=== PATIENT | male | born 1970 | race Caucasian/White ===

== ENCOUNTER → 2021-02-14 14:18 | Outpatient (CLI) | payer OTHER, SELFPAY ==
--- NOTE | 2021-02-14 14:23 | DI.MRI.S_ITS ---
PROCEDURE: MR ANKLE RT WO CON INDICATIONS: Unspecified injury of right foot, subsequent encou TECHNIQUE: Noncontrast sagittal T1 spin echo and T2 fast spin echo with fat saturation, axial proton density fast spin echo and T2 fast spin echo with fat saturation, coronal T1 spin echo and T2 fast spin echo with fat saturation through the ankle/hindfoot. COMPARISON: None. FINDINGS: Image quality: Excellent. Bones and joints: There is marrow edema involving dorsal and medial portion of distal talus adjacent to talonavicular joint without discrete fracture line. No other area of marrow signal abnormality is seen. No hindfoot coalitions. No osteochondral injuries of the talar dome. No significant joint effusions. Medial structures: The posterior tibialis, flexor digitorum longus, and flexor hallucis longus tendons are intact. Fluid distending tendon flexor digitorum longus and flexor hallucis longus tendons are seen suggestive of low-grade tenosynovitis. The posterior tibial neurovascular bundle appears normal within the tarsal tunnel, without extrinsic mass effect. The deep layer (anterior and posterior tibiotalar ligaments) and superficial layer (tibionavicular, tibiospring, and tibiocalcaneal ligaments) of the deltoid ligament appear normal. The spring ligament components (superomedial calcaneonavicular, medioplantar oblique calcaneonavicular, and inferoplantar longitudinal ligaments) are intact. Lateral structures: The anterior talofibular, calcaneofibular, and posterior talofibular ligaments appear intact. More superiorly, the anterior and posterior tibiofibular ligaments appear intact, as is the intermalleolar ligament. The tibiofibular syndesmosis is normal in width at 2 mm or less. The peroneus longus and brevis tendons demonstrate normal location and morphology. Adjacent bony peroneal tubercle and retrotrochlear prominence are normal in size. The sinus tarsi demonstrates normal fatty signal, without edema, fibrosis, or cyst formation. Visualized sinus tarsi components (cervical ligament, interosseous talocalcaneal ligament, roots of the inferior extensor retinaculum) appear normal. The calcaneonavicular and calcaneocuboid components of the bifurcate ligament appear intact. The dorsal calcaneocuboid ligament appears intact. Anterior structures: The tibialis anterior, extensor hallucis longus, and extensor digitorum longus tendons appear intact. The dorsal talonavicular ligament appears intact. Posterior and plantar structures: Achilles tendon is intact. Medial and lateral bands of the plantar fascia are of normal thickness. No abductor digiti quinti muscle atrophy to suggest Moreno neuropathy. IMPRESSION: 1. Suggestion of bony contusion versus incomplete subcortical fracture involving anterior medial aspect of distal talus adjacent to talar navicular joint. No cortical disruption is seen. No other area of marrow signal abnormality. 2. Low-grade tenosynovitis involving flexor tendons as above. No evidence of tendon tear. Achilles tendon is intact. 3. Medial and lateral ankle ligaments are grossly intact. Dictated by: Silvino Flores M.D. on 02/15/2021 at 9:43 Approved by: Silvino Flores M.D. on 02/15/2021 at 9:46
== END ==
PROVIDERS: Referring Provider Podiatrist; Visit Provider Podiatrist
DX: S99.921D Unspecified injury of right foot, subsequent encounter (principal); M25.571 Pain in right ankle and joints of right foot; M65.871 Other synovitis and tenosynovitis, right ankle and foot; R26.2 Difficulty in walking, not elsewhere classified; X58.XXXA Exposure to other specified factors, initial encounter
CPT/HCPCS: 73721

== ENCOUNTER → 2022-03-29 11:35 | Outpatient (CLI) | payer OTHER, SELFPAY ==
[2022-03-29 12:54] LABS: COVID19 -Nasal RAPID Negative (Negative)
== END ==
PROVIDERS: PCP Student in an Organized Health Care Education/Training Program; Visit Provider Family Medicine Sleep Medicine
DX: Z20.822 Contact with and (suspected) exposure to COVID-19 (principal)
CPT/HCPCS: 87635; C9803

== ENCOUNTER 2022-03-30 09:02 | Day surgery (SDC) | payer OTHER, SELFPAY ==
--- NOTE | 2022-03-30 | PATH_ITS ---
[facility] Accession Number: [id number] . 01 Material submitted: . colon - TRANSVERSE POLYP . 02 Diagnosis: Transverse Colon, Polyp, Biopsy: Tubular adenoma. MRV 04/04/2022 1251 Local . 02 Electronically signed: . Donna Chapin MD, Pathologist NPI- [id number] . 01 Gross description: . TRANSVERSE POLYP: Received in formalin is 1 fragment(s) of herrera, soft tissue measuring 1.2 x 0.3 x 0.1 cm submitted entirely in 1 cassette(s) /QBJ 04/01/2022 0424 Local . 02 Pathologist provided ICD-10: D12.3 . 02 CPT . 704628 Specimen Comment: A courtesy copy of this report has been sent to [phone] Performed at: 01 [facility] [address] [id number] MD Ney Gauthier MD Phone: [phone] Performed at: 02 [facility] [address] [place], [place] [id number] MD Donna Chapin MD Phone: [phone]
[2022-03-30 09:23] VITALS: BP 131/80; PULSE 69; RESP 16; TEMP 36.2; O2SAT 97; BMI 27.1
--- NOTE | 2022-03-30 09:31 | PM.HP.1 ---
History of Present Illness History of Present Illness Chief complaint: SCREENING COLONOSCOPY Narrative: For screening colonoscopy. Asymptomatic Patient History Family & Social History Social History: household members spouse Tobacco & Substance use: Smoking Status Never smoker alcohol intake current alcohol intake frequency holiday/special occasion Substance Use Type does not use Meds Home Medications and Allergies Home Medications Medication Instructions Recorded Confirmed Type lisinopril 10 mg tablet 10 mg PO DAILY 03/30/22 03/30/22 History loratadine 10 mg tablet (Claritin) 10 mg PO DAILY PRN 03/30/22 03/30/22 History Allergies Allergy/AdvReac Type Severity Reaction Status Date / Time No Known Drug Allergies Allergy Verified 03/30/22 09:21 Exam Vital Signs (past 8 hours): - 03/30/22 09:23 Temperature 97.1 F L Pulse Rate 69 Respiratory Rate 16 Blood Pressure 131/80 Pulse Oximetry 97 Oxygen Delivery Method Room Air Oxygen Flow Rate 0 Narrative Exam Narrative: Oropharynx free of lesions Chest clear to auscultation percussion Cardiac exam reveals no S3 or murmur Assessment & Plan Assessment & Plan narrative: For screening colonoscopy. Risks, benefits, alternatives have been explained. Further recommendations will follow the results of that study. Time Spent With Patient Critical Care time: I spent a total of [] minutes of critical care time on this patient's care today; this time is exclusive of procedural time.
--- NOTE | 2022-03-30 09:32 | P.OP.COLON_ITS ---
Operative Date/Time/Diagnoses Date of procedure: 03/30/22 Pre-op diagnosis: See indication and findings Procedure & Clinicians Study performed: Colonoscopy Indications: Screening Surgeon: Chela Lubin Procedure Notes Procedure in detail: After informed consent was obtained the patient was placed in left lateral d ecubitus position. The video colonoscope was introduced the rectum slowly advanced cecum. Preparation was good. On slow withdrawal mucosa was carefully examined. The scope was removed. The patient tolerated procedure well. Blood loss none Complications none Sedation mac Findings 1. 4 mm polyp in the midtransverse colon Jumbo biopsy removed completely 2. Otherwise negative colonoscopy to cecum Will follow-up on Mr. Solomon's biopsy and if an adenoma should have follow-up colonoscopy in 7 years
[2022-03-30] MEDS: SODIUM CHLORIDE 0.9% 1,000 ML 84 ML IV (09:39)
[2022-03-30 10:20] VITALS: BP 124/83; PULSE 80; RESP 16; TEMP 36.3; O2SAT 93
[2022-03-30 10:25] VITALS: BP 146/101; PULSE 76; RESP 16; O2SAT 92
[2022-03-30 10:30] VITALS: BP 134/96; PULSE 74; RESP 12; O2SAT 91
[2022-03-30 10:35] VITALS: BP 134/99; PULSE 67; RESP 16; O2SAT 93
--- NOTE | 2022-03-30 10:39 | SUR.PHASEII ---
discharge instructions reviewed with pt and he verbalized understanding.
== END 2022-03-30 10:48 | disposition home or self-care (01) ==
PROVIDERS: PCP Student in an Organized Health Care Education/Training Program; Referring Provider Internal Medicine Gastroenterology; Visit Provider Internal Medicine Gastroenterology
PROC: 0DJD8ZZ Inspection of Lower Intestinal Tract, Via Natural or Artificial Opening Endoscopic (ICD-10-PCS; CPT 45378; principal; 2022-03-30 10:00)
DX: Z12.11 Encounter for screening for malignant neoplasm of colon (principal); K21.9 Gastro-esophageal reflux disease without esophagitis; D12.3 Benign neoplasm of transverse colon
CPT/HCPCS: 45380; J2704

== ENCOUNTER → 2022-09-27 17:08 | Outpatient (CLI) | payer OTHER, SELFPAY ==
--- NOTE | 2022-09-27 | DI.MRI.S_ITS ---
PROCEDURE: MR ANKLE LT WO CON INDICATIONS: other instability, left ankle TECHNIQUE: Noncontrast sagittal T1 spin echo and T2 fast spin echo with fat saturation, axial proton density fast spin echo and T2 fast spin echo with fat saturation, coronal T1 spin echo and T2 fast spin echo with fat saturation through the ankle/hindfoot. COMPARISON: [facility], MR, MR ANKLE RT WO CON, 02/14/2021, 14:29. FINDINGS: Image quality: Excellent. Bones and joints: Osteoarthritic changes are noted involving talonavicular and navicular cuneiform joints. Nonspecific subcortical cystic areas are noted involving inferior aspect of middle and medial cuneiform is with mild adjacent edema concerning for subtle osteochondral injuries. No fracture or dislocation. No hindfoot coalitions. No osteochondral injuries of the talar dome. No pathologic joint effusions. Tiny plantar and dorsal calcaneal enthesophytes are seen. Medial structures: The posterior tibialis, flexor digitorum longus, and flexor hallucis longus tendons are thickened with small amount of fluid distending tendon sheath at the level of medial malleolus extending to the level of talonavicular joint.. The posterior tibial neurovascular bundle appears normal within the tarsal tunnel, without extrinsic mass effect. The deep layer (anterior and posterior tibiotalar ligaments) and superficial layer (tibionavicular, tibiospring, and tibiocalcaneal ligaments) of the deltoid ligament appear normal. The spring ligament components (superomedial calcaneonavicular, medioplantar oblique calcaneonavicular, and inferoplantar longitudinal ligaments) are intact. Lateral structures: The anterior talofibular, calcaneofibular, and posterior talofibular ligaments appear intact. More superiorly, the anterior and posterior tibiofibular ligaments appear intact, as is the intermalleolar ligament. The tibiofibular syndesmosis is normal in width at 2 mm or less. The peroneus longus and brevis tendons are mildly thickened. Adjacent bony peroneal tubercle and retrotrochlear prominence are normal in size. The sinus tarsi demonstrates normal fatty signal, without edema, fibrosis, or cyst formation. Visualized sinus tarsi components (cervical ligament, interosseous talocalcaneal ligament, roots of the inferior extensor retinaculum) appear normal. The calcaneonavicular and calcaneocuboid components of the bifurcate ligament appear intact. The dorsal calcaneocuboid ligament appears intact. Anterior structures: The tibialis anterior, extensor hallucis longus, and extensor digitorum longus tendons appear intact. The dorsal talonavicular ligament appears intact. Posterior and plantar structures: Achilles tendon is intact. Medial and lateral bands of the plantar fascia are of normal thickness. No abductor digiti quinti muscle atrophy to suggest Moreno neuropathy. IMPRESSION: 1. Mild midfoot joint osteoarthritic changes with suggestion of small osteochondral injuries involving plantar aspect of middle and medial cuneiform SSV. No fracture or dislocation. No osteochondral injuries of talar dome. 2. Low-grade tenosynovitis involving flexor tendons. Mild tendinosis involving peroneus tendons. No full-thickness tendon rupture. 3. Medial and lateral ankle ligaments are intact. 4. Tiny plantar and dorsal calcaneal enthesophytes. Distal Achilles tendon and plantar fascia are within normal limits. Dictated by: Silvino Flores M.D. on 09/28/2022 at 9:57 Approved by: Silvino Flores M.D. on 09/28/2022 at 11:29
== END ==
PROVIDERS: PCP Student in an Organized Health Care Education/Training Program; Referring Provider Podiatrist; Visit Provider Podiatrist
DX: M25.372 Other instability, left ankle (principal); M65.872 Other synovitis and tenosynovitis, left ankle and foot; M25.572 Pain in left ankle and joints of left foot
CPT/HCPCS: 73721

== ENCOUNTER → 2023-10-23 13:29 | Outpatient (CLI) | payer OTHER, SELFPAY ==
--- NOTE | 2023-10-23 | DI.RAD.S_ITS ---
PROCEDURE: FL SHOULDER INJECTION MR/CT LT INDICATIONS: LEFT SHOULDER PAIN COMPARISON: None. TECHNIQUE: The indications, alternatives, benefits, risks, and complications of the procedure were explained to the patient. Written informed consent was obtained and placed in the chart. The shoulder was examined fluoroscopically and a site for needle placement chosen for entry into the glenohumeral joint from an anterior approach. The skin was prepped and draped in a sterile fashion, and 1% lidocaine infiltrated from skin down to joint capsule. A spinal needle was inserted into the glenohumeral joint, and a small amount of iodinated contrast media injected to confirm intra-articular placement of the needle tip. This was followed by approximately 12 mL dilute solution of a gadolinium containing MR contrast agent. The needle was removed and a dressing was applied. The patient was given postprocedural instructions and sent to the MR suite for MR imaging. FINDINGS: A single fluoroscopic spot image demonstrates intra-articular location of injected iodinated contrast. IMPRESSION: Successful fluoroscopically guided administration of dilute Gadolinium solution into the shoulder joint for MR arthrogram. Dictated by: Siobhan Novak M.D. on 10/24/2023 at 8:54 Approved by: Siobhan Novak M.D. on 10/24/2023 at 8:55
--- NOTE | 2023-10-23 | DI.MRI.S_ITS ---
PROCEDURE: MR SHOULDER LT W CON INDICATIONS: LEFT SHOULDER PAIN TECHNIQUE: After the administration of 12 mL of dilute intra-articular Gadolinium contrast, oblique coronal T1 and T2 spin echo with fat saturation, oblique sagittal T1 spin echo with and without fat saturation, oblique sagittal T2 fast spin echo with fat saturation, axial T1 spin echo with fat saturation through the shoulder. COMPARISON: None. FINDINGS: Image quality: Excellent. Rotator cuff: Distal supraspinatus tendinosis and low-grade bursal surface partial-thickness tear at its insertion on the humeral head is seen extending to musculotendinous junction. Distal infraspinatus tendinosis is seen. The subscapularis tendon is intact. No full-thickness rotator cuff tendon rupture. No rotator cuff muscle atrophy on sagittal images. Bones and bursae: No bone marrow contusions or fractures. Mild to moderate acromioclavicular joint osteoarthritic changes are seen with joint space narrowing and downward osteophyte formation depressing on musculotendinous junction of supraspinatus. The acromion demonstrates conventional anatomy, without an os acromiale. Capsule and soft tissues: There is fraying of superior anterior labrum with contrast extension at 12 to 1 o'clock position suggestive of superior anterior labral tear. The fraying glenohumeral ligaments appear intact. The long head of the biceps tendon demonstrates normal location and morphology. The rotator interval appears normal, without fibrosis. The coracohumeral ligament is of normal thickness. No intra-articular bodies. IMPRESSION: 1. Distal supraspinatus tendinosis and low-grade bursal surface partial-thickness tear extending to musculotendinous junction. Distal infraspinatus tendinosis. No full-thickness rotator cuff tendon rupture. 2. [id number] acromioclavicular joint osteoarthritis. No fracture or dislocation. No intra-articular loose bodies. 3. Suggestion of superior anterior left shoulder labral tear at 12 to 1 o'clock position. Dictated by: Silvino Flores M.D. on 10/23/2023 at 16:28 Approved by: Silvino Flores M.D. on 10/23/2023 at 16:30
[2023-10-23] MEDS: SODIUM CHLORIDE 0.9 % 20 ML VIAL IV (13:55)
[2023-10-23] MEDS: LIDOCAINE 1% 20 ML INJ (13:55)
== END ==
PROVIDERS: PCP Student in an Organized Health Care Education/Training Program; Referring Provider Student in an Organized Health Care Education/Training Program; Visit Provider Student in an Organized Health Care Education/Training Program
DX: M75.112 Incomplete rotator cuff tear or rupture of left shoulder, not specified as traumatic (principal); M19.012 Primary osteoarthritis, left shoulder; M25.512 Pain in left shoulder
CPT/HCPCS: 23350; 73222

== ENCOUNTER → 2024-04-17 08:10 | Outpatient (CLI) | payer OTHER, SELFPAY | PROVIDERS: Referring Provider Chiropractor; Visit Provider Chiropractor | DX: I10 Essential (primary) hypertension (principal); R06.02 Shortness of breath; E11.9 Type 2 diabetes mellitus without complications; B00.9 Herpesviral infection, unspecified; M13.80 Other specified arthritis, unspecified site | CPT/HCPCS: 94060 ==

== ENCOUNTER → 2024-05-01 08:02 | Outpatient (CLI) | payer OTHER, SELFPAY ==
--- NOTE | 2024-05-01 08:03 | DI.ECHO.S_ITS ---
[facility] : : [address] : : [place] : : [id number] : : Phone: [phone] Echocardiogram Report + + :Name: LISA DOOLEY Study Date: 05/01/2024 Height: 71 in : :Hospital ReadingLocation: Weight: 197 lb : : Gender: Male BSA: 2.1 m2 : :: 1970 Age: 53 yrs BP: 161/100 mmHg: :Reason For Study: SHORTNESS OF BREATH : :Ordering Physician: AGUSTÍN, : :JAVIER Performed By: Franchesca Sutherland : :Referring: JAVIER RANDOLPH : + + Interpretation Summary The left ventricle is normal in size and wall thickness. Left ventricular systolic function appears normal without focal wall motion abnormalities. The ejection fraction is estimated to be 60-65%. Diastolic parameters suggest probable normal left ventricular diastolic function and normal filling pressures. The right ventricle is normal in size and function. The left atrium is mildly dilated. There is mild mitral regurgitation. The aortic root is normal size. Procedure: A two-dimensional transthoracic echocardiogram with color flow and Doppler was performed. The study quality was technically adequate. There is no prior echocardiogram noted for this patient. The patient was in sinus rhythm with heart rates between 56-67 bpm during the exam. Left Ventricle: The left ventricle is normal in size and wall thickness. Left ventricular systolic function appears normal without focal wall motion abnormalities. The ejection fraction is estimated to be 60-65%. Diastolic parameters suggest probable normal left ventricular diastolic function and normal filling pressures. Right Ventricle: The right ventricle is normal in size and function. Atria: The left atrium is mildly dilated. Right atrial size is normal. There is no Doppler evidence for an interatrial shunt. Mitral Valve: There is a flat closure plane of the the mitral valve leaflets. There is mild mitral regurgitation. Aortic Valve: The aortic valve is trileaflet. The aortic valve opens well. There is no aortic valve stenosis. No aortic regurgitation is present. Tricuspid Valve: The tricuspid valve is normal in structure and function. There is trace tricuspid regurgitation. Pulmonic Valve: The pulmonic valve leaflets are thin and pliable; valve motion is normal. There is mild pulmonic regurgitation. Great Vessels: The aortic root is normal size. The dimensions of the ascending aorta are normal. The IVC is of normal diameter and collapses greater than 50% with a sniff. This suggests a low right atrial pressure of 3 mm Hg. Pericardium/ Pleura There is no pericardial effusion. There is no pleural effusion. MMode/2D Measurements & Calculations LVIDd: 4.9 cm LVOT diam: 2.2 cm LVIDs: 3.3 cm Ao root diam: 3.2 cm FS: 32.2 % asc Aorta Diam: 3.1 cm EPSS: 0.53 cm Ao Arch Diam (Prox Trans): 3.3 cm IVSd: 0.99 cm LVPWd: 1.2 cm LV bingham. diameter/BSA (cm/m^2): 2.4 LV sys. diameter/BSA (cm/m^2): 1.6 LA A2 area: 24.5 cm2 RA long axis: 5.5 cm LA A4 area: 22.0 cm2 RA area: 18.2 cm2 LA length (vol): 5.7 cm RA vol: 51.6 ml LA vol: 80.3 ml RA : 24.6 ml/m2 LA vol index: 38.3 ml/m2 IVC diam: 2.0 cm RVD1 (basal): 3.7 cm RVD2 (mid): 3.7 cm TAPSE: 2.3 cm Doppler Measurements & Calculations Ao V2 max: 127.2 cm/sec LVOT Max Brown: 105.8 cm/sec Ao V2 mean: 90.5 cm/sec LV V1 max P.5 mmHg Ao max P.5 mmHg LV V1 VTI: 21.3 cm Ao mean P.7 mmHg RENETTA(I,D): 3.0 cm2 Ao V2 VTI: 27.6 cm RENETTA(V,D): 3.2 cm2 sev ratio: 0.77 RENETTA indexed to BSA (cm^2/m^2): 1.4 MV E max brown: 60.5 cm/sec PA V2 max: 89.0 cm/sec MV A max brown: 54.3 cm/sec PA V2 mean: 63.9 cm/sec MV E/A: 1.1 PA mean P.8 mmHg Med Peak E' Brown: 7.2 cm/sec PA pr(Accel): 29.3 mmHg E/E' med: 8.4 Lat Peak E' Brown: 8.7 cm/sec E/E' lat: 7.0 E/e' average: 7.7 MV dec time: 0.21 sec SV(LVOT): 82.0 ml Reading Physician:11:22 AM
== END ==
LOC: ECHO 08:03
PROVIDERS: Referring Provider Chiropractor; Visit Provider Chiropractor
DX: I34.0 Nonrheumatic mitral (valve) insufficiency (principal); I37.1 Nonrheumatic pulmonary valve insufficiency; I10 Essential (primary) hypertension; R06.02 Shortness of breath; E11.9 Type 2 diabetes mellitus without complications; B00.9 Herpesviral infection, unspecified; M13.80 Other specified arthritis, unspecified site
CPT/HCPCS: 93306

== ENCOUNTER → 2024-07-05 12:35 | Outpatient (CLI) | payer OTHER, SELFPAY ==
--- NOTE | 2024-07-05 12:36 | DI.US.S_ITS ---
PROCEDURE: US RENAL COMPLETE INDICATIONS: Chronic kidney disease, stage 3 unspecified TECHNIQUE: Real-time scanning was performed of the kidneys and bladder, with image documentation. COMPARISON: None. FINDINGS: Kidneys: Kidneys are normal in size. Right kidney measures 12.2 cm long; left kidney measures 13.1 cm long. Right renal cortical thickness is 1.8 cm; left renal cortical thickness is 1.9 cm. Renal cortical echotexture is normal. No hydronephrosis or nephrolithiasis. No suspicious solid mass lesions. Bladder: Pre-void bladder volume is 371 mL. Post-void residual is 49 mL. Pre-void images demonstrate no intraluminal masses or stones. On pre-void images, both ureteral jets are noted with color Doppler interrogation. (Of note, ureteral jets may not be detectable in up to 25% of cases due to insufficient differences in specific gravity between ureteral and bladder urine). Miscellaneous: No free pelvic fluid. IMPRESSION: No acute abnormality. Dictated by: Primo Pearce M.D. on 07/08/2024 at 10:32 Approved by: Primo Pearce M.D. on 07/08/2024 at 10:40
== END ==
PROVIDERS: Referring Provider Internal Medicine; Visit Provider Internal Medicine
DX: N18.30 Chronic kidney disease, stage 3 unspecified (principal)
CPT/HCPCS: 76770

== ENCOUNTER → 2024-07-28 08:46 | Outpatient (CLI) | payer OTHER, SELFPAY ==
--- NOTE | 2024-07-28 | DI.MRI.S_ITS ---
PROCEDURE: MR ANKLE LT WO CON INDICATIONS: PAIN IN JOINT AND FEET, BILATERAL TECHNIQUE: Noncontrast sagittal T1 spin echo and T2 fast spin echo with fat saturation, axial proton density fast spin echo and T2 fast spin echo with fat saturation, coronal T1 spin echo and T2 fast spin echo with fat saturation through the ankle/hindfoot. COMPARISON: [facility], MR, MR ANKLE RT WO CON, 02/14/2021, 14:29. [facility], MR, MR ANKLE LT WO CON, 09/27/2022, 17:18. [facility], MR, MR ANKLE RT WO CON, 07/28/2024, 9:03. FINDINGS: Image quality: Excellent Tendons: Mild tenosynovitis of the flexor tendons, involving the posterior tibialis, the flexor digitorum longus, and the flexor hallucis longus. The extensor tendons are unremarkable. The peroneal tendons are unremarkable. Mild tendinosis of the distal Achilles tendon with mild peritenonitis. No tear of the distal Achilles tendon. Ligaments: The anterior and posterior tibiofibular ligaments are intact. The anterior and the posterior talofibular ligaments are intact. The calcaneofibular ligament is intact. The deep portion of the deltoid ligament is intact. Sinus tarsi: No fibrosis Plantar fascia: Mild thickening of the central cord, raising concern for plantar fasciitis. Muscle: Normal in signal Bones: Moderate subchondral cystic changes with marrow edema in the proximal medial aspect of the navicula, unchanged from prior exam, degenerative. No acute fracture. No significant tibiotalar effusion. Small posterior subtalar effusion. IMPRESSION: 1. Mild tenosynovitis of the flexor tendon. 2. Mild tendinosis distal Achilles tendon with mild peritenonitis. 3. Findings suggestive of plantar fasciitis. 4. Moderate subchondral cystic changes with marrow edema in the navicula, degenerative, unchanged from prior exam. Dictated by: Beulah Candelario M.D. on 07/29/2024 at 21:28 Approved by: Beulah Candelario M.D. on 07/29/2024 at 21:38
--- NOTE | 2024-07-28 | DI.MRI.S_ITS ---
PROCEDURE: MR ANKLE RT WO CON INDICATIONS: PAIN IN JOINT AND FEET, BILATERAL TECHNIQUE: Noncontrast sagittal T1 spin echo and T2 fast spin echo with fat saturation, axial proton density fast spin echo and T2 fast spin echo with fat saturation, coronal T1 spin echo and T2 fast spin echo with fat saturation through the ankle/hindfoot. COMPARISON: [facility], MR, MR ANKLE LT WO CON, 09/27/2022, 17:18. FINDINGS: Image quality: Excellent Tendons: Mild tenosynovitis of the flexor tendons, involving the posterior tibialis, flexor digitorum longus, and the flexor hallucis longus. Trace tenosynovitis of the anterior tibialis. The extensor digitorum longus and the extensor hallucis longus are unremarkable. The peroneal tendons are unremarkable. Moderate tendinosis of the distal Achilles tendon, without tear. Ligaments: The anterior and posterior tibiofibular ligament are intact. The anterior and posterior talofibular ligaments are intact. The calcaneofibular ligament is not definitely visualized. The deep portion of the deltoid ligament is unremarkable. Sinus tarsi: No fibrosis Plantar fascia: Mild thickening of the central cord, raising concern for plantar fasciitis. Muscles: Normal in signal Bones: Mild subchondral marrow edema of the talus head, about the talar navicular joint, representing minimal degenerative changes. Mild subchondral marrow edema with mild subchondral cystic changes at the distal cuboid, about the 4th tarsometatarsal joint, degenerative. No acute fracture. No significant tibiotalar effusion. Small posterior subtalar effusion. IMPRESSION: 1. Mild tenosynovitis of the flexor tendons. 2. Trace tenosynovitis of the anterior tibialis. 3. Moderate tendinosis of the distal Achilles tendon, without tear. 4. Findings suggestive of plantar fasciitis. 5. Mild degenerative changes of the midfoot. Dictated by: Beulah Candelario M.D. on 07/29/2024 at 21:18 Approved by: Beulah Candelario M.D. on 07/29/2024 at 21:27
== END ==
LOC: MRI 08:47
PROVIDERS: Referring Provider Podiatrist; Visit Provider Podiatrist
DX: M25.372 Other instability, left ankle (principal); M25.571 Pain in right ankle and joints of right foot; M25.371 Other instability, right ankle; M25.572 Pain in left ankle and joints of left foot; M65.9 Synovitis and tenosynovitis, unspecified; M77.8 Other enthesopathies, not elsewhere classified
CPT/HCPCS: 73721

== ENCOUNTER 2024-08-19 09:00 | Outpatient (RCR) | payer OTHER, SELFPAY ==
--- NOTE | 2024-08-02 12:30 | OT.OP.EVAL ---
Visit Care Team Role Provider Type Marian AMOS Provider Primary Care Provider Non-Staff Specialty: Medical Address: Phone: Email: Ernesto Ray DO Attending Provider Non-Staff Family Provider Referring Provider Specialty: Medical 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 Jaden will be modified independent with home exercise program utilizing provided written/visual instructions as needed. 2. Jaden will be able to verbally identify 2-3 different conservative measures for finger/hand pain management. 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 Medical history is significant for neck, back and jaw pain; blood pressure - med managed; headaches; hearing problems; shortness of breath; vision problems. (+) taking of medication for migraines, pain, heart issues/ cholesterol, and pre-diabetes. Hand/Wrist Pain Assessment Grid completed; indication of 7 out of 10 pain relative to radial volar/dorsal surfaces of bilateral wrists, dorsal hands dorsal L thumb sebspace and dorsal digits 2-5 MPJ -> distally bilaterally. QuickDASH UE Outcome Measure Score = 42.5; QuickDASH UE Work Module Score = 25.00; QuickDASH UE Sports/Performing Arts Module (mountain biking) Score = 56.25. (-) bilateral intrinsic tightness noted; does report occasional popping dorsally of the L 5th digit w/ tendon gliding. (-) changes in sensation reported w/ reverse phalen's test, although, discomfort reported in bilateral wrists post-test. Goniometer AROM Measurements = 0-[address]; 0-30 degrees B wrist UD; 0-60 degrees B wrist flex; 0-62 degrees R wrist ext; 0-66 degrees L wrist ext; 0-70 degrees R forearm supination vs 0-75 degrees L forearm supination. Full bilateral forearm pronation. MMT 5/5 for bilateral wrist flex, bilateral wrist ext, bilateral wrist RD, and bilateral wrist UD. Dynamometer II Strength Testing Results with elbow in 90 degrees Flexion = R mri supervisor 68 .0# of force (compared to same -aged peers 113.6 +/- 18.1# of force) versus L mri supervisor 88.0# of force (compared to same-aged peers 101.9 +/- 17.0# of force ). Dynamometer II Strength Testing Results with Elbow Extended = R mri supervisor 76.0# of force versus L mri supervisor 74.0# of force. Lateral Toscano Pinch = R lateral pinch 20.0# of force ( compared to same-aged peers 26 .7 +/- 4.4# of force) versus L lateral pinch 17.0# of force (compared to same-aged peers 26.1 +/- 4.2# of force). Tip Pinch = R tip pinch 16.0# of force (compared to same-aged peers 18.3 +/- 4.0# of force) versus L tip pinch 13.0# of force (compared to same-aged peers 17.8 +/- 3.9# of force). 3-Jaw Pinch = R 3-jaw pinch 14.0# of force (compared to same-aged peers 23.8 +/- 5.4# of force) versus L 3-jaw pinch 13.5# of force (compared to same-aged peers 24.0 +/- 5.8# of force). Home Exercise Program 08/02/24 = Myofascial adductor release; 20-30 sec hold. x 1 rep daily. Wrist/digit ext stretch elbow flex vs elbow ext w/ forearm supination unilaterally vs bilaterally w/ use of TT or wall. 20-30 sec hold. x 1 rep daily. Rec repeating as needed. Discussed basic joint protection principles, including avoiding repetitive resistive pinches, sustained pinch, and/or positions of deformity w/ use of the thumb. Length of treatment (weeks) 6 Plan of Care Start Date 08/02/24 Plan of Care End Date 09/13/24 Treatment Frequency Once a Week Therapeutic Contents Active Range of Motion, Adaptive Equipment Education, Client Education,Functional Activities,Home Exercise Program,Joint Protection, Manual Therapy,Education, Neurodevelopment Treatment, Neuromuscular Re-Education, Self-Care,Stretching/ Flexibility Activities, Therapeutic Activities, Therapeutic Exercises, Modalities Modalities As Needed,As Prescribed Additional Types of Modalities Ultrasound/Paraffin bath/Hot/ Cold/Contrast baths
--- NOTE | 2024-08-08 15:14 | OT.OP.TRT ---
Visit Care Team Role Provider Type Marian AMOS Provider Primary Care Provider Non-Staff Specialty: Medical Address: Phone: Email: Ernesto Ray DO Attending Provider Non-Staff Family Provider Referring Provider Specialty: Medical [facility] [place] [place], [address] Email: Occupational Therapy Treatment Note OT Outpatient Treatment Note - Adult Start: 08/02/24 09:37 Freq: Status: Active Protocol: Document 08/08/24 14:51 AMS (Rec: 08/08/24 15:14 AMS [id number]) OT Outpatient Adult Treatment Note Session Time Visit Start Time 09:00 Visit Stop Time 09:43 Visit Information Visit Number 01/01 Plan of Care Dates 08/02/24 - 09/13/24 Insurance Information Prime; Auth x 12 visits; *CPT Codes 73458 and 12094 NOT APPROVED Setting Treatment Setting Outpatient Care General Information General Information Jaden is 53 y.o.; R hand dominant; referred to outpatient OT secondary to chronic bilateral hand pain and 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 Medical history is significant for neck, back and jaw pain; blood pressure - med managed; headaches; hearing problems; shortness of breath; vision problems. (+) taking of medication for migraines, pain, heart issues/ cholesterol, and pre-diabetes. Hand/Wrist Pain Assessment Grid completed; indication of 7 out of 10 pain relative to radial volar/dorsal surfaces of bilateral wrists, dorsal hands dorsal L thumb sebspace and dorsal digits 2-5 MPJ -> distally bilaterally. QuickDASH UE Outcome Measure Score = 42.5; QuickDASH UE Work Module Score = 25.00; QuickDASH UE Sports/Performing Arts Module (mountain biking) Score = 56.25. - Subjective Identification Type Name Observations Avoiding putting pressure thru the hand/wrist; thus, avoiding push-ups at this time . Some discomfort reported w/ fishing (fishing olegario). Executing with R hand on fishing olegario w/ L hand reeling in the line. Some discomfort reported w/ propelling UEB in backwards direction relative to R wrist. Report of wrist discomfort w/ use of shoulder press machine at gym; he does use free weights a little bit. 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 Jaden will be modified independent with home exercise program utilizing provided written/visual instructions as needed. 2. Jaden will be able to verbally identify 2-3 different conservative measures for finger/hand pain management. - Exercises 4 Descriptor Wrist strengthening exercises. Wrist ext; prox elbow stabilization. 3.3#. 2 x 10. Wrist ext rainbow; prox elbow stabilization. 3.3#. 2 x 10. 3 Descriptor Dynamic wrist exercises. Angled trampoline. 3.3# weighted spherical ball. 2 sets x 15 reps per exercise. Unilateral throw and catch forward facing. Alt/cross throw and catch forward facing . Unilateral throw and catch 90 degree turn to L and to the R. Alt/cross throw and catch 90 degree turn to L and to the R. 2 Descriptor Passive wrist stretches. Wrist flex. Wrist ext. Wrist RD. Wrist UD. 1 Descriptor UEB seated. x 7 min forwards. x 3 min backwards. - Assessment Assessment of Improvement Some discomfort of R wrist w/ backwards propelling of UEB; discomfort reported w/ use of shoulder press machine at the gym. Reviewed passive wrist range of motion exercises; written and visual instructions for these exercises to be scanned into EMR. Good tolerance of angled trampoline exercises w/ use of weighted spherical ball. Will look to incorporate additional weight bearing activities; rec considering TB wrist strengthening exercises and/or weight bearing/ proprioceptive exercises. Will need to monitor positioning of wrist and impact on performance/tolerance of exercises. Home Exercise Program 08/08/24 = Passive wrist stretches; visual and written instructions to be scanned into EMR. - Plan Therapy Recommendations Advance per Rehabilitation Protocol
--- NOTE | 2024-08-15 13:47 | OT.OP.TRT ---
Visit Care Team Role Provider Type Marian TRINIDAD Provider Primary Care Provider Non-Staff Specialty: Medical Address: Phone: Email: Ernesto Ray DO Attending Provider Non-Staff Family Provider Referring Provider Specialty: Medical Address: [facility] Ernie Macdonald [facility], [place], [address] Email: Occupational Therapy Treatment Note OT Outpatient Treatment Note - Adult Start: 08/02/24 09:37 Freq: Status: Active Protocol: Document 08/15/24 13:37 AMS (Rec: 08/15/24 13:47 AMS [id number]) OT Outpatient Adult Treatment Note Session Time Visit Start Time 13:00 Visit Stop Time 13:35 Visit Information Visit Number 01/29 Plan of Care Dates 08/02/24 - 09/13/24 Insurance Information Prime; Auth x 12 visits; *CPT Codes 85098 and 89397 NOT APPROVED Setting Treatment Setting Outpatient Care Visit Type Note Type Treatment Note General Information General Information Jaden is 53 y.o.; R hand dominant; referred to outpatient OT secondary to chronic bilateral hand pain and 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 Medical history is significant for neck, back and jaw pain; blood pressure - med managed; headaches; hearing problems; shortness of breath; vision problems. (+) taking of medication for migraines, pain, heart issues/ cholesterol, and pre-diabetes. Hand/Wrist Pain Assessment Grid completed; indication of 7 out of 10 pain relative to radial volar/dorsal surfaces of bilateral wrists, dorsal hands dorsal L thumb sebspace and dorsal digits 2-5 MPJ -> distally bilaterally. QuickDASH UE Outcome Measure Score = 42.5; QuickDASH UE Work Module Score = 25.00; QuickDASH UE Sports/Performing Arts Module (mountain biking) Score = 56.25. - Subjective Identification Type Name Observations Report of 'pain and discomfort of both hands this morning upon waking'. Reportedly took '30 to 45 seconds of really struggling to get hands moving upon waking'. 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 Jaden will be modified independent with home exercise program utilizing provided written/visual instructions as needed. 2. Jaden will be able to verbally identify 2-3 different conservative measures for finger/hand pain management. - Exercises 4 Descriptor Wrist strengthening exercises. Wood dowel exercise. 5# DB. x 5 cycles both directions. Wrist flexion. Wrist extension . Elbows near base of support. Wood dowel exercise. 5# DB. x 2 cycles both directions. Wrist flexion. Wrist extension . Elbows near full extension. N/A 08/15/24 Wrist ext; prox elbow stabilization. 3.3#. 2 x 10. Wrist ext rainbow; prox elbow stabilization. 3.3#. 2 x 10. 3 Descriptor Dynamic wrist exercises. Angled trampoline. 3.3# weighted spherical ball. 3 sets x 15 reps. Unilateral throw and catch forward facing . Alt/cross throw and catch forward facing. Unilateral throw and catch 90 degree turn to L and to the R. Angled trampoline. 3.3# weighted spherical ball. 2 sets x 15 reps. Unilateral throw and catch forward facing underhand toss to contralateral hand -> unilateral throw and catch forward facing w/ contralateral hand. 2 Descriptor ROM. Passive wrist stretches. Wrist flex. Wrist ext. Wrist RD. Wrist UD. Tendon glides x 5 cycles. 1 Descriptor UEB seated. x 7 min forwards. x 3 min backwards. - Assessment Assessment of Improvement Report of pain/discomfort bilaterally of both hands this morning w/ need to warm-up for 30-45 sec. Good tolerance of angled trampoline exercises w/ use of weighted spherical ball of 3.3#. Good tolerance of resisted wrist flex/wrist ext w/ wood dowel exercise. No request for rest breaks between exercises; thus, able to complete a number of wrist strengthening/dynamic wrist/ hand exercises/activities in a condensed amount of time. Rec introducing TB exercises and providing written and visual instructions for these exercises. Home Exercise Program 08/08/24 = Passive wrist stretches; visual and written instructions to be scanned into EMR. - Plan Therapy Recommendations Advance per Rehabilitation Protocol
--- NOTE | 2024-08-19 10:49 | OT.OP.TRT ---
Visit Care Team Role Provider Type Marian TRINIDAD Provider Primary Care Provider Non-Staff Specialty: Medical Address: Phone: Email: Ernesto Ray DO Attending Provider Non-Staff Family Provider Referring Provider Specialty: Medical Address: [facility] Ernie Macdonald [facility], [place], [address] Email: Occupational Therapy Treatment Note OT Outpatient Treatment Note - Adult Start: 08/02/24 09:37 Freq: Status: Active Protocol: Document 08/19/24 10:36 AMS (Rec: 08/19/24 10:49 AMS [id number]) OT Outpatient Adult Treatment Note Session Time Visit Start Time 09:00 Visit Stop Time 09:43 Visit Information Visit Number 03/01 Plan of Care Dates 08/02/24 - 09/13/24 Insurance Information Prime; Auth x 12 visits; *CPT Codes 42198 and 24136 NOT APPROVED Setting Treatment Setting Outpatient Care Visit Type Note Type Treatment Note General Information General Information Jaden is 53 y.o.; R hand dominant; referred to outpatient OT secondary to chronic bilateral hand pain and 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 Medical history is significant for neck, back and jaw pain; blood pressure - med managed; headaches; hearing problems; shortness of breath; vision problems. (+) taking of medication for migraines, pain, heart issues/ cholesterol, and pre-diabetes. Hand/Wrist Pain Assessment Grid completed; indication of 7 out of 10 pain relative to radial volar/dorsal surfaces of bilateral wrists, dorsal hands dorsal L thumb sebspace and dorsal digits 2-5 MPJ -> distally bilaterally. QuickDASH UE Outcome Measure Score = 42.5; QuickDASH UE Work Module Score = 25.00; QuickDASH UE Sports/Performing Arts Module (mountain biking) Score = 56.25. - Subjective Identification Type Name Observations No new concerns were reported. - Objective Objective Measurements Please refer to below for progress towards meeting established OT goals: Rn Plastic Surgery Goals 1. Jaden will be modified independent with home exercise program utilizing provided written/visual instructions as needed. 2. Jaden will be able to verbally identify 2-3 different conservative measures for finger/hand pain management. - Exercises 5 Descriptor TB Wrist Strengthening. TB #4. Wrist extension. 3 x 10 . Bilateral. Elbows approx 90 degrees flexion. TB anchored underneath foot. TB #4. Wrist flexion. 3 x 10. Bilateral. Elbows approx 90 degrees flexion. TB anchored underneath foot. TB #4. Wrist RD. 3 x 10. Bilateral. Elbows approx 90 degrees flexion. TB anchored underneath foot. TB #4. Wrist UD. 3 x 10. Bilateral loop. 4 Descriptor Wrist strengthening exercises. Wood dowel exercise. 5# DB. x 4 cycles both directions. Wrist flexion. Wrist extension . Elbows near base of support. Wood dowel exercise. 5# DB. x 2 cycles both directions. Wrist flexion. Wrist extension . Elbows near full extension. N/A 08/15/24 Wrist ext; prox elbow stabilization. 3.3#. 2 x 10. Wrist ext rainbow; prox elbow stabilization. 3.3#. 2 x 10. 3 Descriptor Dynamic wrist exercises. Angled trampoline. 4.4# weighted spherical ball. 3 sets x 15 reps. Unilateral throw and catch forward facing . Alt/cross throw and catch forward facing. Unilateral throw and catch 90 degree turn to L and to the R. Angled trampoline. 4.4# weighted spherical ball. 2 sets x 15 reps. Unilateral throw and catch forward facing underhand toss to contralateral hand -> unilateral throw and catch forward facing w/ contralateral hand. 2 Descriptor ROM. Passive wrist stretches. Wrist flex. Wrist ext. Wrist RD. Wrist UD. N/A 08/19/24 Tendon glides x 5 cycles. 1 Descriptor UEB seated. x 7 min forwards. x 3 min backwards. - Assessment Assessment of Improvement Upgraded HEP; provided w/ TB # 4 for home use. Instructed in 3 sets of 10 repetitions alt exercises and/or rest breaks between sets. Rec 3 x a week and/or every other day. Instructions to be scanned into EMR once front end web developer staff are able to do so. Reviewed passive wrist stretches; also instructed in passive digit/ wrist ext w/ elbow in ext and forearm in supination combined w/ slight UD. Home Exercise Program 08/19/24 = TB wrist strengthening exercises; provided w/ TB #4 for home use . Rec 3 x 10. Alternating. 3 x per week or every other day. Visual and written instructions to be scanned into EMR. 08/08/24 = Passive wrist stretches; visual and written instructions to be scanned into EMR. - Plan Therapy Recommendations Advance per Rehabilitation Protocol
--- NOTE | 2024-09-18 10:31 | OT.OP.DC ---
Visit Care Team Role Provider Type Tioseb AMOS Provider Primary Care Provider Non-Staff Address: Phone: Email: Ernesto Ray DO Attending Provider Non-Staff Family Provider Referring Provider Address: [address] [facility], [place], [address] Email: OT Outpatient OT Outpatient Adult Evaluation Start: 08/02/24 09:37 Freq: Status: Active Protocol: Document 08/02/24 09:37 AMS (Rec: 08/02/24 09:49 AMS [id number]) General Information - Adult Visit Information Visit Number [id number] Plan of Care Dates 08/02/24 - 09/13/24 Insurance Information Prime; Auth x 12 visits; *CPT Codes 10046 and 90977 NOT APPROVED Session Time Visit Start Time 08:20 Visit Stop Time 08:50 Setting Treatment Setting Outpatient Care Visit Type Note Type 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 Jaden will be modified independent with home exercise program utilizing provided written/visual instructions as needed. 2. Jaden will be able to verbally identify 2-3 different conservative measures for finger/hand pain management. 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 Medical history is significant for neck, back and jaw pain; blood pressure - med managed; headaches; hearing problems; shortness of breath; vision problems. (+) taking of medication for migraines, pain, heart issues/ cholesterol, and pre-diabetes. Hand/Wrist Pain Assessment Grid completed; indication of 7 out of 10 pain relative to radial volar/dorsal surfaces of bilateral wrists, dorsal hands dorsal L thumb sebspace and dorsal digits 2-5 MPJ -> distally bilaterally. QuickDASH UE Outcome Measure Score = 42.5; QuickDASH UE Work Module Score = 25.00; QuickDASH UE Sports/Performing Arts Module (mountain biking) Score = 56.25. (-) bilateral intrinsic tightness noted; does report occasional popping dorsally of the L 5th digit w/ tendon gliding. (-) changes in sensation reported w/ reverse phalen's test, although, discomfort reported in bilateral wrists post-test. Goniometer AROM Measurements = 0-[address]; 0-30 degrees B wrist UD; 0-60 degrees B wrist flex; 0-62 degrees R wrist ext; 0-66 degrees L wrist ext; 0-70 degrees R forearm supination vs 0-75 degrees L forearm supination. Full bilateral forearm pronation. MMT 5/5 for bilateral wrist flex, bilateral wrist ext, bilateral wrist RD, and bilateral wrist UD. Dynamometer II Strength Testing Results with elbow in 90 degrees Flexion = R retaining room cutter 68 .0# of force (compared to same -aged peers 113.6 +/- 18.1# of force) versus L retaining room cutter 88.0# of force (compared to same-aged peers 101.9 +/- 17.0# of force ). Dynamometer II Strength Testing Results with Elbow Extended = R retaining room cutter 76.0# of force versus L retaining room cutter 74.0# of force. Lateral [place] Pinch = R lateral pinch 20.0# of force ( compared to same-aged peers 26 .7 +/- 4.4# of force) versus L lateral pinch 17.0# of force (compared to same-aged peers 26.1 +/- 4.2# of force). Tip Pinch = R tip pinch 16.0# of force (compared to same-aged peers 18.3 +/- 4.0# of force) versus L tip pinch 13.0# of force (compared to same-aged peers 17.8 +/- 3.9# of force). 3-Jaw Pinch = R 3-jaw pinch 14.0# of force (compared to same-aged peers 23.8 +/- 5.4# of force) versus L 3-jaw pinch 13.5# of force (compared to same-aged peers 24.0 +/- 5.8# of force). Home Exercise Program 08/02/24 = Myofascial adductor release; 20-30 sec hold. x 1 rep daily. Wrist/digit ext stretch elbow flex vs elbow ext w/ forearm supination unilaterally vs bilaterally w/ use of TT or wall. 20-30 sec hold. x 1 rep daily. Rec repeating as needed. Discussed basic joint protection principles, including avoiding repetitive resistive pinches, sustained pinch, and/or positions of deformity w/ use of the thumb. Plan Length of treatment (weeks) 6 Plan of Care Start Date 08/02/24 Plan of Care End Date 09/13/24 Treatment Frequency Once a Week Therapeutic Contents Active Range of Motion, Adaptive Equipment Education, Client Education,Functional Activities,Home Exercise Program,Joint Protection, Manual Therapy,Education, Neurodevelopment Treatment, Neuromuscular Re-Education, Self-Care,Stretching/ Flexibility Activities, Therapeutic Activities, Therapeutic Exercises, Modalities Modalities As Needed,As Prescribed Additional Types of Modalities Ultrasound/Paraffin bath/Hot/ Cold/Contrast baths Functional Wrist/Hand Scan Hand Side Sensory Assessment Sensory Profile2 OT Outpatient Treatment Note - Adult Start: 08/02/24 09:37 Freq: Status: Active Protocol: Document 09/18/24 10:29 AMS (Rec: 09/18/24 10:31 AMS [id number]) OT Outpatient Adult Treatment Note Visit Information Visit Number 4 Plan of Care Dates 08/02/24 - 09/13/24 Insurance Information Prime; Auth x 12 visits; *CPT Codes 41607 and 78163 NOT APPROVED Setting Treatment Setting Outpatient Care Visit Type Note Type Discharge Summary - Subjective Observations Jaden has not been seen in the outpatient clinic by clinician since 08/19/24 and outpatient OT POC on 09/13/24; thus, recommend d/c at this time and re-evaluate as deemed appropriate with receipt of new referral from PCP. - Objective Objective Measurements Please refer to below for progress towards meeting established OT goals: Halfway Goals ALL GOALS D/C 09/18/24 1. Jaden will be modified independent with home exercise program utilizing provided written/visual instructions as needed. 2. Jaden will be able to verbally identify 2-3 different conservative measures for finger/hand pain management. - - Assessment Assessment of Improvement Jaden has not been seen in the outpatient clinic by clinician since 08/19/24 and outpatient OT POC on 09/13/24; thus, recommend d/c at this time and re-evaluate as deemed appropriate with receipt of new referral from PCP. - Plan Therapy Recommendations Discharge from Occupational Therapy
== END 2024-09-18 15:01 | disposition home or self-care (01) ==
LOC: OT 09:00
DX: M79.2 Neuralgia and neuritis, unspecified (principal)
CPT/HCPCS: 97110; 97165